=== PATIENT | male | born 1965 | race Caucasian/White ===

== ENCOUNTER 2020-05-20 11:32 | Outpatient (CLI) | payer OTHER, SELFPAY | END 2020-05-20 11:33 | disposition home or self-care (01) | LOC: ANHCOVIDVC 11:32 | PROVIDERS: PCP Internal Medicine; Visit Provider Internal Medicine | DX: Z23 Encounter for immunization (principal) | CPT/HCPCS: 0001A; 91300 ==

== ENCOUNTER 2020-06-10 10:59 | Outpatient (CLI) | payer OTHER, SELFPAY | END 2020-06-10 11:00 | disposition home or self-care (01) | LOC: ANHCOVIDVC 10:59 | PROVIDERS: PCP Internal Medicine | DX: Z23 Encounter for immunization (principal) | CPT/HCPCS: 0002A; 91300 ==

== ENCOUNTER 2023-01-03 10:28 | Outpatient (CLI) | payer OTHER, SELFPAY ==
--- NOTE | 2023-01-10 10:01 | WPDHOLTEREM ---
Holter/Event Monitor Holter/Event Monitor Date of procedure: 01/03/23 Holter/Event Procedure: 48 Hr Holter Monitor Indications: Palpitations Conclusion: 1. 48 hour holter monitor on 01/03/23. 2. Underlying rhythm is sinus rhythm. HR range 48-129 bpm; average HR 66 bpm. 3. There are 45 premature supraventricular complexes, 3 supraventricular couplets and 1 supraventricular triplet. No supraventricular tachycardia. 4. There are 14,242 premature ventricular complexes, 1,257 ventricular couplets, 5,011 ventricular trigeminy. No ventricular tachycardia. 5. No sinoatrial or atrioventricular blocks. No significant pauses greater than 2 seconds. 6. Patient reports symptoms of palpitations which demonstrate sinus rhythm, HR range 70-72 bpm with ventricular trigeminy.
== END 2023-01-03 10:29 | disposition home or self-care (01) ==
PROVIDERS: PCP Family Medicine; Visit Provider Family Medicine
DX: R00.2 Palpitations (principal)
CPT/HCPCS: 93225; 93226